=== PATIENT | female | born 1940 | race Caucasian/White ===

== ENCOUNTER → 2017-11-14 | Outpatient (CLI) | payer OTHER ==
[~2017-11-14] VITALS: Ht 162.6 cm; Wt 69.1 kg
[~2017-11-14] MED LIST: ADULT LOW DOSE81 MG PO; AMITRIPTYLINE H10 M1 PO; BENTYL 10 MG CA10 M1 PO; BENTYL10 MG PO; BUSPIRONE HCL5 MG PO; CLONAZEPAM 0.50.5 M1 PO; COLESTIPOL HCL1 G1 PO; CYCLOBENZAPRINE5 MG PO; ESTRACE1 TUBE VAG; ESTRADIOL1 EAC7 TOP; EVOXAC30 MG PO; FIBERCON625 M1 PO; FISH OIL 1,001000 M1 PO; FOLIC ACID1 MG PO; HYDROCHLOROTH12.5 M2 PO; HYDROCHLOROTH12.5 MG PO; K-DUR10 ME1 PO; KLONOPIN PO; LOSARTAN-HCTZ1 EACH PO; MAGNESIUM250 M1 PO; NEXIUM40 MG PO; POTASSIUM PO; PREDNISONE 5 MG5 M1 PO; REMICADE 1100 MG/VIA; REMICADE 1100 MG/VIA IV; ROVIN-CF OF TA1 EACH PO; TRAMADOL 50 MG50 MG PO; VITAMIN B-125000 MCG SL; VITAMIN B-625 MG PO; VITAMIN D1000 UNI1 PO; VIVELLE-DOT1 EAC1 TD
--- NOTE | ~2017-11-14 | HPC ---
[facility] [place] [address] PAIN MANAGEMENT CONSULTATION Name: CARMELA MOSCOSO Room #: REG [facility] Alonzo#: [id number] Admission: 11/14/17 Attend Phys: Nav Conroy DO Discharge: Date of : 44 Report #: [id number] THIS REPORT FOR: //name// CC: Carmela Conroy DATE OF SERVICE: 11/14/2017 HISTORY: The patient is a very pleasant 77-year-old female seen 3-1/2 years ago in 05/2014 for right SI mediated pain. The patient was given a right SI joint injection on 04/22/2014, had very good relief of symptoms. She prior had had SI joint injection in 05/2011 with relief for about 2 years. The patient notes following the SI joint injection back in 05/2014, she did very well until the past few weeks, pain has recurred, it is in the low back, right side, radiating into the gluteus area and down the thigh, but not below the knee. The patient notes pain began after moving 6 bags of mulch. Had significant exacerbation with no radicular or myelopathic component. Pain is exacerbated with standing, walking and bending. She has trialed tramadol, prednisone (chronic use), all with no efficacy. She describes the pain as a constant aching sensation, rates it an 8 on a VAS, currently exacerbated with any and all movement or weightbearing. Some relief when she is sitting or recumbent. Some relief with ice or lying on the floor. REVIEW OF SYSTEMS: Complete review of systems attached to the chart was gone over with the patient. The patient has history of Crohn's disease, status post colon resection in 1969; hysterectomy, has had a cholecystectomy in 1986. Has had a left rotator cuff repair in 1989, was treated for colon cancer with colon resection 1994 (prior 1969 resection was for ruptured appendix and Crohn's disease). Left total knee arthroplasty in 2004. She has had a TIA in 02/2006, no significant sequelae. Remaining ROS notes dyslipidemia, hypertension, RLS. All other ROS is negative. MEDICATIONS: Medication list was reconciled today, the patient takes multiple vitamins; Imodium as needed for short gut syndrome. Restless leg syndrome treated with [id number] agents; tramadol for pain; dicyclomine for Crohn's; estradiol (female hormone replacement); losartan for hypertension; Klonopin 0.5 mg daily for some chronic anxiety, typically at bedtime; colestipol for dyslipidemia; BuSpar for some chronic anxiety. She does take prednisone daily for her Crohn's disease. PHYSICAL EXAMINATION: VITAL SIGNS: Reveals 162 cm, 69 kilogram female with a BMI of 26.1 kilograms per meter squared. Blood pressure shows some [place] [address] PAIN MANAGEMENT CONSULTATION Name: CARMELA MOSCOSO Room #: REG CL Alonzo#: [id number] Admission: 11/14/17 Attend Phys: Nav Conroy DO Discharge: Date of : 44 Report #: [id number] 157/69, pulse 70, respirations are 18. GENERAL: She is alert and oriented to person, place and time, judged to be a reasonable historian. EXTREMITIES: Upper extremity strength is symmetric. CARDIAC: Heart is regular and rhythmical without murmur. LUNGS: Clear to auscultation. ABDOMEN: Generally benign. NEUROLOGIC: Rises from chair using armrest, has a mildly antalgic gait, slightly ataxic. Lumbar flexion is limited about 70 degrees. Very tender over the right SI joint, pain radiating to the buttock and leg. Lower extremity strength is generally symmetric, though modestly diminished. Straight leg raise is negative. Patellar and Achilles reflexes are preserved. Opla test is positive on the right. Pelvic distraction is positive on the right. SKIN: There is some hyperemia of the left medial lower leg, this is a cutaneous reaction to Stelara, the patient has discontinued this agent. 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 RECOMMENDATIONS: 1. Continue current medication including prednisone and tramadol. 2. Right SI joint injection under fluoroscopy today. 3. Core stabilization exercises reviewed. 4. Follow up as needed. PROCEDURE: Right SI joint injection under fluoroscopy. PROCEDURE: After written informed consent was obtained, the patient was taken to the fluoroscopy suite and placed in prone position. After sterile prep and drape, skin wheal was raised. A 22-gauge stylet needle was placed to contact the inferior aspect of the right SI joint. Negative aspiration was accomplished. A 1 mL of Omnipaque was injected, which showed spread within the joint. This was followed with 40 mg triamcinolone plus 2 mL of 0.5% preservative-free bupivacaine. Needle was removed. The area was cleansed, Band-Aid was applied. The patient was monitored for an appropriate period of time, discharged in good and stable condition. Fluoroscopy time was under 10 seconds. <ELECTRONICALLY SIGNED> By: Nav Conroy DO 11/14/17 [id number] Nav Conroy, DO /nt
[2017-11-14 09:56] VITALS: BP 157/69
== END | disposition home or self-care (01) ==
LOC: PAIN 09:39
DX: M53.3 Sacrococcygeal disorders, not elsewhere classified (principal); I10 Essential (primary) hypertension; K50.90 Crohn's disease, unspecified, without complications; E78.5 Hyperlipidemia, unspecified; F41.8 Other specified anxiety disorders; Z90.49 Acquired absence of other specified parts of digestive tract; Z90.710 Acquired absence of both cervix and uterus; Z98.0 Intestinal bypass and anastomosis status; Z85.038 Personal history of other malignant neoplasm of large intestine; Z98.890 Other specified postprocedural states; Z79.899 Other long term (current) drug therapy; Z86.73 Personal history of transient ischemic attack (TIA), and cerebral infarction without residual deficits; Z96.652 Presence of left artificial knee joint